=== PATIENT | female | born 1985 | race Caucasian/White ===

== ENCOUNTER 2016-04-20 13:41 | Emergency (ER) | payer BC ==
[2016-04-20] MEDS ORDERED: ONDANSETRON 4 MG VIAL ONE (15:43)
[2016-04-20] MEDS ORDERED: SODIUM CHLORIDE 0.9% 1,000 ML ONE (15:43)
== END 2016-04-20 17:13 | disposition home or self-care (01) ==
LOC: ER 13:58
DX: K52.89 Other specified noninfective gastroenteritis and colitis (principal); F17.210 Nicotine dependence, cigarettes, uncomplicated
CPT/HCPCS: 36415; 80053; 81003; 83690; 84703; 85025; 87804; 87880; 96361; 96374